=== PATIENT | female | born 1985 | race Caucasian/White ===

== ENCOUNTER 2019-07-30 08:11 | Outpatient (CLI) | payer OTHER ==
--- NOTE | 2019-07-30 13:30 | Ultrasound Report ---
Reason: POSITIVE TEST Procedure Date: 07/30/2019 Accession Number: [id number] / [id number] Procedure: US - OB First Trimester CPT Code: Final Report FULL RESULT: EXAM: FIRST TRIMESTER OBSTETRIC ULTRASOUND (Less than 11 weeks) EXAM DATE: 07/30/2019 08:21 AM. CLINICAL HISTORY: Positive test. LMP: 05/22/2019. COMPARISONS: None. TECHNIQUE: Transabdominal ultrasound examination with static image documentation. CLINICAL DATES: EGA 9 weeks 6 days with CECILIA 02/26/2020 based on LMP. ASSESSMENT: Gestational Sac: Single intrauterine. Mean gestational sac diameter: 43.1 mm = 9 weeks 6 days. Embryo: CRL (crown-rump length) 36.5 mm = 10 weeks 4 days. Cardiac activity: 163 beats per minute. Yolk sac: 4.2 mm. Amniotic fluid: Not accurately assessed at this gestational age. Early placenta: Posterior. Other: No perigestational fluid collection demonstrated. MATERNAL STRUCTURES: Uterus: Anteverted. Unremarkable. Cervix: Closed. Right Ovary/Adnexa: The ovary measures 2.7 x 2.1 x 1.6 cm, volume 4.7 cc. Unremarkable. Left Ovary/Adnexa: The ovary measures 5.2 x 4.4 x 2.9 cm, volume 35 cc. 3.8 x 3.6 x 2 x 7 cm cyst is noted. Free Fluid: None. Other: None. IMPRESSION: 1. Single viable intrauterine at EGA 10 weeks 4 days with CECILIA 02/21/2020 based on crown-rump length, which is concordant with clinical dates. 2. Assigned dating is CECILIA 9 weeks 6 days based on LMP. ALEXANDER
== END 2019-07-30 08:12 | disposition home or self-care (01) ==
LOC: DI 08:11
PROVIDERS: ATTEND Nurse Practitioner Obstetrics & Gynecology
DX: Z32.01 Encounter for pregnancy test, result positive (principal)
CPT/HCPCS: 76801

== ENCOUNTER 2019-07-31 08:00 | Outpatient (CLI) | payer OTHER ==
[2019-07-31 08:55] LABS: MUDS CUTOFF CONCENTRATIONS CUTOFF CONC BELOW:
[2019-07-31 09:42] LABS: AMPHETAMINE SCREEN,URINE NEGATIVE (NEGATIVE); BENZODIAZEPINES SCREEN, URINE NEGATIVE (NEGATIVE); COCAINE SCREEN URINE NEGATIVE (NEGATIVE); METHADONE SCREEN, URINE NEGATIVE (NEGATIVE); METHAMPHETAMINES SCREEN, URINE NEGATIVE (NEGATIVE); OPIATE SCREEN, URINE NEGATIVE (NEGATIVE); OXYCODONE SCREEN, URINE NEGATIVE (NEGATIVE); PROPOXYPHENE SCREEN, URINE NEGATIVE (NEGATIVE); TRICYCLIC ANTIDEPRESSANT,URINE NEGATIVE (NEGATIVE)
== END 2019-07-31 23:59 | disposition home or self-care (01) ==
LOC: LAB.R 08:00
PROVIDERS: ATTEND Nurse Practitioner Obstetrics & Gynecology
DX: Z36.89 Encounter for other specified antenatal screening (principal)
CPT/HCPCS: 80306

== ENCOUNTER 2019-08-06 11:11 | Outpatient (CLI) | payer OTHER | END 2019-08-06 11:12 | disposition home or self-care (01) | LOC: LAB 11:11 | PROVIDERS: ATTEND Nurse Practitioner Obstetrics & Gynecology | DX: Z36.89 Encounter for other specified antenatal screening (principal) | CPT/HCPCS: 81599 ==

== ENCOUNTER 2019-09-10 13:38 | Outpatient (CLI) | payer BC ==
[2019-09-10 14:07] LABS: BASOPHILS % (AUTO) 0.3 %; EOSINOPHILS # (AUTO) 0.1 10^3/uL (0.0-0.7); EOSINOPHILS % (AUTO) 0.7 %; HGB - HEMOGLOBIN 12.1 g/dL (12.0-16.0); LYMPHOCYTES # (AUTO) 1.9 10^3/uL (1.5-3.5); LYMPHOCYTES % (AUTO) 16.4 %; MEAN CORPUSCULAR HEMOGLOBIN 30.6 pg (27.0-31.0); MEAN CORPUSCULAR HGB CONC 34.5 g/dL (32.0-36.0); MEAN CORPUSCULAR VOLUME 88.6 fL (81.0-99.0); MEAN PLATELET VOLUME 9.4 fL (7.9-10.8); MONOCYTES # (AUTO) 0.6 10^3/uL (0.0-1.0); MONOCYTES % (AUTO) 5.4 %; NEUTROPHILS # (AUTO) 8.8 10^3/uL (1.5-6.6); NEUTROPHILS % (AUTO) 76.6 %; PLT - PLATELET COUNT 297 10^3/uL (130-450); RED BLOOD COUNT 3.96 10^6/uL (4.20-5.40); RED CELL DISTRIBUTION WIDTH 12.5 % (12.0-15.0); WHITE BLOOD COUNT 11.5 x10^3/uL (4.8-10.8)
[2019-09-11 12:08] LABS: HEPATITIS B SURFACE ANTIGEN NON-REACTIVE (NON-REACTIVE)
[2019-09-11 14:35] LABS: HIV AG/AB 4TH GEN NON-REACTIVE (NON-REACTIVE)
[2019-09-11 15:13] LABS: HEPATITIS C ANTIBODY NON-REACTIVE (NON-REACTIVE)
== END 2019-09-10 13:39 | disposition home or self-care (01) ==
LOC: LAB 13:38
PROVIDERS: ATTEND Nurse Practitioner Obstetrics & Gynecology
DX: Z36.89 Encounter for other specified antenatal screening (principal)
CPT/HCPCS: 36415; 81511; 81599; 85025; 86592; 86762; 86803; 86850; 86900; 86901; 87340; 87389

== ENCOUNTER 2019-10-08 16:19 | Outpatient (CLI) | payer BC ==
--- NOTE | 2019-10-09 08:45 | Ultrasound Report ---
Reason: SUPERV OF , SCREENING Procedure Date: 10/08/2019 Accession Number: [id number] / [id number] Procedure: US - OB Detailed Eval CPT Code: Final Report FULL RESULT: EXAM: COMPLETE OBSTETRICAL ULTRASOUND EXAM DATE: 10/08/2019 04:35 PM. CLINICAL HISTORY: anatomic survey. COMPARISON: OB FIRST TRIMESTER 07/30/2019 8:21 AM. TECHNIQUE: Real-time sonographic evaluation of the fetus performed by the shirt presser. Multiple jewelry sales representative static images were saved for review. DATING: Established EGA 19 weeks 6 days with CECILIA 02/26/2020 based on working due date/LMP. EGA 19 weeks 2 days with CECILIA 03/01/2020 based on the current ultrasound. GENERAL EVALUATION Rosario . Cardiac activity: 147 bpm. movement: Visualized. Presentation: Variable Placenta: Posterior position. No evidence for previa. Umbilical cord: 3 vessel cord. Central placental cord origin. Amniotic fluid: Subjectively normal. MVP 4.6 cm. BIOMETRY Bi-Parietal Diameter (BPD): 4.2 cm, 18 weeks 4 days Head Circumference (HC): 16.7 cm, 19 weeks 3 days Abdominal Circumference (AC): 14.2 cm, 19 weeks 4 days Femur Length (FL): 3.4 cm, 20 weeks 5 days Estimated Weight: 325 g, 53rd percentile for 19 weeks 6 days. ANATOMY The profile view/nasal bone, nuchal fold, open hands in real-time, four-chamber cardiac view and right ventricular outflow tract, right lower extremity and right leg/foot relationship as well as the left leg/foot relationship not adequately visualized. The intracranial structures,spine, left ventricular outflow tract, stomach, abdominal wall and cord insertion, diaphragm, kidneys, bladder, and remaining upper extremities were visualized and demonstrate no abnormality. MATERNAL STRUCTURES Uterus: Unremarkable. Cervix: Long and closed. Transabdominal length 4.5 cm. Right ovary/adnexa: Unremarkable. Left ovary/adnexa: A 1.3 cm cyst is noted. Free fluid: None. IMPRESSION: 1. Rosario live intrauterine with gestational age 19 weeks 6 days based on working due date. 2. Estimated weight is within expected limits for assigned dating. 3. Incomplete anatomy survey. No anatomic abnormalities are detected at this time. RADIA
== END 2019-10-08 16:20 | disposition home or self-care (01) ==
LOC: DI 16:19
PROVIDERS: ATTEND Nurse Practitioner Obstetrics & Gynecology
DX: Z34.90 Encounter for supervision of normal pregnancy, unspecified, unspecified trimester (principal); Z36.89 Encounter for other specified antenatal screening
CPT/HCPCS: 76811

== ENCOUNTER 2019-10-22 08:59 | Outpatient (CLI) | payer BC ==
--- NOTE | 2019-10-22 15:34 | Ultrasound Report ---
Reason: SUPERVISION OF , COMPLETION OF FAS Procedure Date: 10/22/2019 Accession Number: [id number] / [id number] Procedure: US - OB F/U or Repeat CPT Code: Final Report FULL RESULT: EXAM: FOLLOW-UP OBSTETRICAL ULTRASOUND. EXAM DATE: 10/22/2019 10:08 AM. CLINICAL HISTORY: Supervision of , completion of FAS. COMPARISON: OB DETAILED EVAL 10/08/2019 4:35 PM. TECHNIQUE: Real-time sonographic evaluation of the fetus performed by the hand packer/packager. Multiple provider service representative static images were saved for review. DATING: Established EGA 21 weeks 6 days with CECILIA 02/26/2020 based on working due date. GENERAL EVALUATION Rosario . Cardiac activity: 140 bpm. movement: Visualized. Presentation: Breech. Placenta: Posterior position. Amniotic fluid: Normal. DEACON 10.4 cm. MVP 3.0 cm. ANATOMY Profile/nasal bone view, open hands, 4-chamber heart, right ventricular outflow tract and right lower extremity including right leg foot relationship as well as the left lower extremity leg foot relationship all well visualized and within normal limits. IMPRESSION: 1. Rosario live intrauterine with gestational age 21 weeks 6 days based on working due date. 2. Completion of the anatomy survey. No anatomic abnormality is identified. RADIA
== END 2019-10-22 09:00 | disposition home or self-care (01) ==
LOC: DI 08:59
PROVIDERS: ATTEND Nurse Practitioner Obstetrics & Gynecology
DX: Z34.92 Encounter for supervision of normal pregnancy, unspecified, second trimester (principal); Z36.89 Encounter for other specified antenatal screening
CPT/HCPCS: 76816

== ENCOUNTER 2019-11-26 12:04 | Outpatient (CLI) | payer BC ==
[2019-11-26 16:36] LABS: HGB - HEMOGLOBIN 11.6 g/dL (12.0-16.0); MEAN CORPUSCULAR HEMOGLOBIN 29.6 pg (27.0-31.0); MEAN CORPUSCULAR HGB CONC 32.1 g/dL (32.0-36.0); MEAN CORPUSCULAR VOLUME 92.1 fL (81.0-99.0); MEAN PLATELET VOLUME 9.9 fL (7.9-10.8); RED BLOOD COUNT 3.92 10^6/uL (4.20-5.40); RED CELL DISTRIBUTION WIDTH 12.8 % (12.0-15.0); WHITE BLOOD COUNT 11.9 x10^3/uL (4.8-10.8)
== END 2019-11-26 23:59 | disposition home or self-care (01) ==
LOC: LAB.WCP 12:04
PROVIDERS: ATTEND Obstetrics & Gynecology
DX: Z34.90 Encounter for supervision of normal pregnancy, unspecified, unspecified trimester (principal)
CPT/HCPCS: 36415; 82950; 85027; 86850

== ENCOUNTER 2020-01-23 08:56 | Outpatient (CLI) | payer BC ==
--- NOTE | 2020-01-23 14:19 | Ultrasound Report ---
Reason: PREGNENCY SIZE LESS THEN DATES Procedure Date: 01/23/2020 Accession Number: [id number] / [id number] Procedure: US - OB F/U or Repeat CPT Code: Final Report FULL RESULT: PROCEDURE: OB F/U or Repeat INDICATIONS: PREGNENCY SIZE LESS THEN DATES OUTSIDE/PRIOR DATING DATA: Last menstrual period (LMP): 05/22/2019. LMP-based estimated date of delivery (CECILIA): 02/26/2020. First dating scan (date and location): 07/30/2019. Estimated date of delivery (CECILIA) from first dating scan: 02/26/2020. TECHNIQUE: Real-time scanning was performed of the fetus, with image documentation and biometric measurements. Endovaginal scanning: Not needed for this study. COMPARISON: 07/30/2019, 10/08/2019, 10/22/2019 obstetrical ultrasound studies. FINDINGS: General: A single living intrauterine gestation is present. Presentation: Vertex Placenta: Placental position is fundal, without previa. Amniotic fluid index: 12.7 cm, 37th percentile for gestational age. heart rate: 147 beats per minute. Maternal cervical canal: 3.1 cm long; normal length is 2.5 cm or more. biometrics: Biparietal diameter: 8.3 cm, 33 weeks 2 days Head circumference: 30.2 cm, 33 weeks 3 days Abdominal circumference: 28.5 cm, 32 weeks 4 days Femur length: 6.4 cm, 33 weeks 1 day Estimated gestational age from initial scan: 35 weeks 1 day. Composite gestational age from present scan: 29 weeks 5 days Estimated weight and percentile: 2073 g, the lower 5th percentile for current gestational age. Measurement variability in biometric dating: +/- 10 days from 12-20 weeks gestation, +/- 2 weeks from 20-30 weeks gestation, +/- 3 weeks at 30 weeks gestation or more. Other: Not applicable. IMPRESSION: The growth parameters have reached the threshold of asymmetric growth retardation with the current abdominal circumference lagging behind the other 3 growth parameters of BPD, head circumference, and femur length. This results in a reduction of estimated weight to the lower 5th percentile. Repeat OB ultrasound in 1-2 weeks likely is warranted. Reviewed by: Stone Escalona MD on 01/23/2020 2:17 PM PDT Approved by: Stone Escalona MD on 01/23/2020 2:17 PM PDT Station ID: [id number]
== END 2020-01-23 08:57 | disposition home or self-care (01) ==
LOC: DI 08:56
PROVIDERS: ATTEND Advanced Practice Midwife
DX: O36.5930 Maternal care for other known or suspected poor fetal growth, third trimester, not applicable or unspecified (principal)
CPT/HCPCS: 76816

== ENCOUNTER 2020-01-28 12:11 | Outpatient (CLI) | payer BC ==
[2020-01-28 12:33] VITALS: BP 113/66
--- NOTE | 2020-01-28 14:38 | Ultrasound Report ---
Reason: IUGR at 35.6 weeks gestation Procedure Date: 01/28/2020 Accession Number: [id number] / [id number] Procedure: US - OB Biophysical Profile CPT Code: Final Report FULL RESULT: PROCEDURE: OB Biophysical Profile INDICATIONS: IUGR at 35.6 weeks gestation OUTSIDE/PRIOR DATING DATA: Last menstrual period (LMP): 05/22/2019. LMP-based estimated date of delivery (CECILIA): 02/26/2020. First dating scan (date and location): 07/30/2019. Estimated date of delivery (CECILIA) from first dating scan: 02/26/2020. TECHNIQUE: Real-time scanning was performed of the fetus, with image documentation and biometric measurements. Biophysical profile was also obtained. Endovaginal scanning: Not performed COMPARISON: 01/23/2020. FINDINGS: General: A single living intrauterine gestation is present. Presentation: Vertex, spine maternal left Placenta: Placental position is fundal, without previa. Amniotic fluid index: 10.0 cm within normal limits heart rate: 136 beats per minute. Biophysical profile: Tone: 2 points. Movement: 2 points. Respiration: 2 points. Largest pocket of fluid: 2 points. (4.5 cm) Umbilical artery Doppler: 2.55, within normal limits IMPRESSION: Single living intrauterine fetus in vertex presentation Normal biophysical profile and cord Doppler examination Normal DEACON Reviewed by: Jasiel Cruz MD on 01/28/2020 2:36 PM PDT Approved by: Jasiel Cruz MD on 01/28/2020 2:36 PM PDT Station ID: [id number]
--- NOTE | 2020-01-28 16:18 | PROCEDURE REPORT ---
- HPI Diagnosis/Indication for NST: Intrauterine growth restriction Current EDU 02/26/20 Gestation 35 Weeks and 6 Days 1 Para 0 Vital Signs Temperature 37.2 C 01/28/20 12:29 Heart Rate 74 01/28/20 12:29 Respiratory Rate 16 01/28/20 12:29 Blood Pressure 113/66 01/28/20 12:29 O2 Saturation 100 01/28/20 12:29 Temperature 37.2 C 01/28/20 12:29 Heart Rate 74 01/28/20 12:29 Respiratory Rate 16 01/28/20 12:29 Blood Pressure 113/66 01/28/20 12:29 O2 Saturation 100 01/28/20 12:29 - NST Procedure NST Procedure Start Date 01/28/20 Start Time 12:25 Stop Time 13:01 Vibroacoustic Stimulation Used No Patient States Movement Yes - Results and Plan Findings/Impression: 34yo at 35.6wks gestation by 9.6wk US, presents today for NST and BPP with cord dopplers for IUGR NST performed 01/28/2020 NST read 01/28/2020 NST Interpretation: Reassuring Baseline 120s. moderate variability, accels, no decels. Cat I Impression: NST reassuring BPP 8/8 Cord Dopplers (S/D ration 2.55) WNL Final Diagnosis: Reassuring findings today Continue with twice weekly NST with BPP and cord dopplers
== END 2020-01-28 14:00 | disposition home or self-care (01) ==
LOC: WFO 12:11 → FBP 12:12 → WFO 14:00
PROVIDERS: ATTEND Advanced Practice Midwife
DX: O36.5930 Maternal care for other known or suspected poor fetal growth, third trimester, not applicable or unspecified (principal); Z3A.35 35 weeks gestation of pregnancy; Z36.85 Encounter for antenatal screening for Streptococcus B
CPT/HCPCS: 59025; 76819

== ENCOUNTER 2020-02-02 07:00 | Outpatient (CLI) | payer BC ==
[2020-02-02 19:03] LABS: TRICHOMONAS VAGINALIS DNA NEGATIVE (NEGATIVE)
--- NOTE | 2020-02-03 19:55 | PROCEDURE REPORT ---
- HPI Diagnosis/Indication for NST: Intrauterine growth restriction NST perform date 02/02/2020 NST read date 02/03/2020 34yo at 36.5wks gestation by 9.6wk US, presents today for NST and BPP with cord dopplers for IUGR NST Interpretation: Reassuring Baseline 140s. moderate variability, accels, no recurrent decels (question of early vs late decel with one spontaneous uterine contraction) . Cat I Impression: NST reassuring BPP 8/8 Cord Dopplers (S/D ratio) WNL Final Diagnosis: Reassuring findings today Continue with twice weekly NST with BPP and cord dopplers - NST Procedure NST Procedure Start Time 09:22 Stop Time 10:22
== END 2020-02-02 23:59 | disposition home or self-care (01) ==
LOC: LAB.R 07:00
PROVIDERS: ATTEND Advanced Practice Midwife
DX: Z34.90 Encounter for supervision of normal pregnancy, unspecified, unspecified trimester (principal); Z36.85 Encounter for antenatal screening for Streptococcus B
CPT/HCPCS: 87491; 87591; 87661; 87797

== ENCOUNTER 2020-02-02 09:23 | Outpatient (CLI) | payer BC ==
[2020-02-02 09:37] VITALS: BP 119/64
--- NOTE | 2020-02-02 10:23 | PROCEDURE REPORT ---
- HPI Diagnosis/Indication for NST: Other (IUGR) Current EDU 02/26/20 Gestation 36 Weeks and 4 Days 1 Para 0 Vital Signs Temperature 99.0 F 02/02/20 09:27 Heart Rate 80 02/02/20 09:27 Respiratory Rate 16 02/02/20 09:27 Blood Pressure 119/64 02/02/20 09:27 O2 Saturation 100 02/02/20 09:27 Temperature 99.0 F 02/02/20 09:27 Heart Rate 80 02/02/20 09:27 Respiratory Rate 16 02/02/20 09:27 Blood Pressure 119/64 02/02/20 09:27 O2 Saturation 100 02/02/20 09:27 - NST Procedure NST Procedure Start Date 02/02/20 Start Time 09:22 Stop Time 13:01 Vibroacoustic Stimulation Used No Patient States Movement Yes - Results and Plan Findings/Impression: 34yo G1 at 36w4d here for scheduled NST, and cord dopplers. NST reactive.
--- NOTE | 2020-02-02 12:17 | Ultrasound Report ---
PROCEDURE: OB F/U or Repeat INDICATIONS: growth restriction, baby at the 4%, CECILIA 02/25 OUTSIDE/PRIOR DATING DATA: Last menstrual period (LMP): 05/22/2019. LMP-based estimated date of delivery (CECILIA): 02/26/2020. First dating scan (date and location): 07/30/2019. Estimated date of delivery (CECILIA) from first dating scan: 02/26/2020. TECHNIQUE: Real-time scanning was performed of the fetus, with image documentation and biometric measurements. COMPARISON: OB ultrasound 01/28/2020 FINDINGS: General: A single living intrauterine gestation is present. Presentation: Cephalic Placenta: Placental position is posterior, without previa. Amniotic fluid index: 8.7 cm, 9th percentile for gestational age. Largest pocket 3.1 cm heart rate: 146 beats per minute. Maternal cervical canal: 4.4 cm long; normal length is 2.5 cm or more. biometrics: Biparietal diameter: 8.5 cm 34 weeks 0 days Head circumference: 30.7 cm 34 weeks 1 day Abdominal circumference: 3.0 cm 33 weeks 6 days Femur length: 6.9 cm 35 weeks 2 days Estimated gestational age from initial scan: 36 weeks 4 days Composite gestational age from present scan: 34 weeks 2 days Estimated weight and percentile: 2399 g, 75th percentile Measurement variability in biometric dating: +/- 10 days from 12-20 weeks gestation, +/- 2 weeks from 20-30 weeks gestation, +/- 3 weeks at 30 weeks gestation or more. Other: BPP: Tone: 2 Movement: 2 Respiration: 2 Largest pocket: 2 Umbilical artery systolic to diastolic ratio: 2.8. This is compared to 2.6 on 01/28/2020 and 3.4 on 01/23/2020. IMPRESSION: 1. Single live intrauterine with ultrasound gestational age today of 34 weeks 2 days compar ed to 36 weeks 4 days from initial ultrasound. 2. Estimated weight is at the 7.5th percentile, compared to lower 5th percentile on 01/23/2020. P revious exams demonstrate concern for intrauterine growth restriction. Current exam gestational age i s almost 2 weeks behind gestational age from initial ultrasound. Although, in the third trimester +/- 3 weeks is within normal limits, the low weight percentile is concerning for true intrauterine growth restriction. 3. Umbilical artery systolic to diastolic ratio measures 2.8. This is compared to 2.6 on 01/28/2020 an d 3.4 on 01/23/2020. Reviewed by: Chantal Jeffers MD on 02/02/2020 12:16 PM PDT Approved by: Chantal Jeffers MD on 02/02/2020 12:16 PM PDT Station ID: [id number]
--- NOTE | 2020-02-02 12:26 | Ultrasound Report ---
PROCEDURE: OB Biophysical Profile INDICATIONS: growth restriction, at the 4th %, CECILIA OUTSIDE/PRIOR DATING DATA: Last menstrual period (LMP): 05/22/2019. LMP-based estimated date of delivery (CECILIA): 02/26/2020. First dating scan (date and location): 07/30/2019. Estimated date of delivery (CECILIA) from first dating scan: 02/26/2020. TECHNIQUE: Real-time scanning was performed of the fetus, with image documentation and biometric joce surements. Biophysical profile was also obtained. Endovaginal scanning: Not needed for this study. COMPARISON: Earlier OB ultrasound studies for this to include 01/28/2020, 01/23/2020, 0, 10/08/2019. FINDINGS: General: A single living intrauterine gestation is present. Presentation: Vertex Placenta: Placental position is posterior, without previa. Amniotic fluid index: 8.7 cm, lower 9th percentile for gestational age. heart rate: 149 beats per minute. Maternal cervical canal: 4.4 cm long; normal length is 2.5 cm or more. biometrics: Biparietal diameter: 8.5 cm, 34 weeks 0 days Head circumference: 30.7 cm, 34 weeks 1 day Abdominal circumference: 30.0 cm, 33 weeks 6 days Femur length: 6.9 cm, 35 weeks 2 days Estimated gestational age from initial scan: 36 weeks 4 days. Composite gestational age from present scan: 34 weeks 2 days Estimated weight and percentile: 2399 g, lower 7.5 percentile Measurement variability in biometric dating: +/- 10 days from 12-20 weeks gestation, +/- 2 weeks from 20-30 weeks gestation, +/- 3 weeks at 30 weeks gestation or later. Biophysical profile: Tone: 2 points. Movement: 2 points. Respiration: 2 points. Largest pocket of fluid: 2 points. Umbilical artery Doppler: 2.8, 2.0, 2.6 systolic/diastolic ratios Note: chest, abdomen, kidney region, placental cord insertion and urinary bladder were visualiz ed and normal. The later gestational age of the gestation does reduce quality of visualization of fet al anatomy. IMPRESSION: 1. Biophysical profile normal, with 8 of 8 possible points. Umbilical artery systolic/diastolic ratio is also normal. 2. Amniotic fluid index is in the normal range, lower 9th percentile for current gestational age. Nex t 3. Estimated weight is above the lower limits of normal at 7.5% for current gestational age. Th e lower limit of normal is 5%. Additional close monitoring for further reduction of growth like ly is warranted in this circumstance. Reviewed by: Stone Escalona MD on 02/02/2020 11:25 AM ANDRESSA Approved by: Stone Escalona MD on 02/02/2020 11:25 AM ANDRESSA Station ID: [id number]
== END 2020-02-02 11:31 | disposition home or self-care (01) ==
LOC: WFO 09:23 → FBP 09:30 → WFO 11:31
PROVIDERS: ATTEND Obstetrics & Gynecology
DX: O36.5930 Maternal care for other known or suspected poor fetal growth, third trimester, not applicable or unspecified (principal); Z3A.36 36 weeks gestation of pregnancy; Z36.85 Encounter for antenatal screening for Streptococcus B
CPT/HCPCS: 59025; 76816; 76819; 87491; 87591; 87661; 87797

== ENCOUNTER 2020-02-09 08:56 | Outpatient (CLI) | payer BC ==
[2020-02-09 09:12] VITALS: BP 113/69
--- NOTE | 2020-02-09 11:56 | Ultrasound Report ---
PROCEDURE: OB Biophysical Profile INDICATIONS: IUGR OUTSIDE/PRIOR DATING DATA: Last menstrual period (LMP): 05/22/2019. LMP-based estimated date of delivery (CECILIA): 02/26/2020. First dating scan (date and location): 07/30/2019. Estimated date of delivery (CECILIA) from first dating scan: 02/26/2020. TECHNIQUE: Real-time scanning was performed of the fetus, with image documentation. Biophysical pro file was also obtained. Endovaginal scanning: Not performed COMPARISON: 02/02/2020, 01/28/2020 FINDINGS: General: A single living intrauterine gestation is present. Presentation: Cephalic Placenta: Placental position is posterior, without previa. Amniotic fluid index: 9.8 cm, 16th percentile for gestational age. Largest pocket is 3.4 cm. heart rate: 141 beats per minute. Maternal cervical canal: Not well seen. biometrics: Not performed on the current exam. Biophysical profile: Tone: 2 points. Movement: 2 points. Respiration: 0 points. Largest pocket of fluid: 2 points. Umbilical artery Doppler: 2.53, 2.25, 2.60, normal IMPRESSION: 1. Single living intrauterine in cephalic presentation. 2. Biophysical profile score of 6 out of 8 secondary to respiratory motion is not seen. 3. Normal umbilical artery Doppler ratios. Reviewed by: Allegra Wiseman MD on 02/09/2020 11:54 AM PDT Approved by: Allegra Wiseman MD on 02/09/2020 11:54 AM PDT Station ID: [id number]
--- NOTE | 2020-02-09 14:27 | PROCEDURE REPORT ---
- HPI Diagnosis/Indication for NST: Intrauterine growth restriction Current EDU 02/26/20 Gestation 37 Weeks and 4 Days 1 Para 0 Vital Signs Temperature 37.1 C 02/09/20 09:10 Heart Rate 71 02/09/20 09:10 Respiratory Rate 18 02/09/20 09:10 Blood Pressure 113/69 02/09/20 09:10 O2 Saturation 100 02/09/20 09:10 Temperature 37.1 C 02/09/20 09:10 Heart Rate 71 02/09/20 09:10 Respiratory Rate 18 02/09/20 09:10 Blood Pressure 113/69 02/09/20 09:10 O2 Saturation 100 02/09/20 09:10 - NST Procedure NST Procedure Start Date 02/09/20 Start Time 08:59 Stop Time 09:19 Vibroacoustic Stimulation Used No Patient States Movement Yes - Results and Plan Findings/Impression: 34yo at 37.4wks gestation by 9.6wk US, presents today for NST and BPP with cord dopplers for IUGR NST performed 02/09/2020 NST read 02/09/2020 NST Interpretation: Reassuring Baseline 140s. moderate variability, accels, no decels. Cat I Impression: NST reassuring BPP 6/8 ( 2 off for no respiratory movements) Cord Dopplers- WNL (2.53/2.25/2.60) Final Diagnosis: Due to BPP of 6/8, follow up within 24 hours is indicated. Continue with twice weekly NST with BPP and cord dopplers MFM consulted- deliver by 39.0wk. Follow up with MFM 02/11.
== END 2020-02-09 11:10 | disposition home or self-care (01) ==
LOC: WFO 08:56 → FBP 08:58 → WFO 11:10
PROVIDERS: ATTEND Advanced Practice Midwife
DX: O36.5930 Maternal care for other known or suspected poor fetal growth, third trimester, not applicable or unspecified (principal); Z3A.37 37 weeks gestation of pregnancy
CPT/HCPCS: 59025; 76819

== ENCOUNTER 2020-02-10 10:56 | Outpatient (CLI) | payer BC ==
[2020-02-10 11:20] VITALS: BP 113/64
--- NOTE | 2020-02-10 17:05 | Ultrasound Report ---
PROCEDURE: OB Biophysical Profile INDICATIONS: small for gestational age, IUGR OUTSIDE/PRIOR DATING DATA: Last menstrual period (LMP): 05/22/2019. LMP-based estimated date of delivery (CECILIA): 02/26/2020. First dating scan (date and location): 07/30/2019. Estimated date of delivery (CECILIA) from first dating scan: 02/26/2020. TECHNIQUE: Real-time scanning was performed of the fetus, with image documentation and biometric joce surements. Biophysical profile was also obtained. Endovaginal scanning: Not performed COMPARISON: 02/02/2028, 02/09/2020. FINDINGS: General: A single living intrauterine gestation is present. Presentation: Cephalic with the spine towards maternal right side. Placenta: Placental position is posterior, without previa. Amniotic fluid index: 9.6 cm, 15.3% and is normal for gestational age. Largest pocket measures 3.5 cm. heart rate: 137 beats per minute. Maternal cervical canal: 3.9 cm long; normal length is 2.5 cm or more. biometrics: Estimated gestational age from initial scan: 37 weeks, 5 days Biophysical profile: Tone: 2 points. Movement: 2 points. Respiration: 2 points. Largest pocket of fluid: 2 points. Umbilical artery Doppler: 2.6 and 2.8 IMPRESSION: 1. Single live intrauterine with fetus in vertex presentation. heart rate is 137 bpm. Normal amount of amniotic fluid. 2. biophysical profile score is 8 out of 8. 3. Normal umbilical artery S/D ratio. Reviewed by: Jaylon Sultana MD on 02/10/2020 5:04 PM PDT Approved by: Jaylon Sultana MD on 02/10/2020 5:04 PM PDT Station ID: [id number]
--- NOTE | 2020-02-11 15:59 | PROCEDURE REPORT ---
- HPI Diagnosis/Indication for NST: Intrauterine growth restriction Current EDU 02/26/20 Gestation 37 Weeks and 5 Days 1 Para 0 Vital Signs Temperature 37.0 C 02/10/20 11:17 Heart Rate 89 02/10/20 11:17 Respiratory Rate 16 02/10/20 11:17 Blood Pressure 113/64 02/10/20 11:17 O2 Saturation 98 02/10/20 11:17 Temperature 37.0 C 02/10/20 11:17 Heart Rate 89 02/10/20 11:17 Respiratory Rate 16 02/10/20 11:17 Blood Pressure 113/64 02/10/20 11:17 O2 Saturation 98 02/10/20 11:17 - NST Procedure NST Procedure Start Date 02/10/20 Start Time 11:15 Stop Time 11:45 Patient States Movement Yes - Results and Plan Findings/Impression: reactive NST Plan: continue antinatal testing
== END 2020-02-10 14:45 | disposition home or self-care (01) ==
LOC: WFO 10:56 → FBP 11:02 → WFO 14:45
PROVIDERS: ATTEND Obstetrics & Gynecology
DX: O36.5930 Maternal care for other known or suspected poor fetal growth, third trimester, not applicable or unspecified (principal); Z3A.37 37 weeks gestation of pregnancy
CPT/HCPCS: 59025; 76819

== ENCOUNTER 2020-02-13 17:53 | Inpatient (IN) | payer BC ==
[2020-02-13] MEDS ORDERED: OXYTOCIN/SODIUM CHLORIDE 500 ML IV PRN ×2 (20:51)
[2020-02-13] MEDS ORDERED: TRANEXAMIC ACID 1,000 MG in SODIUM CHLORIDE 0.9% 100ML 100 ML IV PRN (20:51)
[2020-02-13] MEDS ORDERED: miSOPROStoL 200 MCG TABLET BC PRN (20:51)
[2020-02-13] MEDS ORDERED: TERBUTALINE 1 MG/ML VIAL SUBQ PRN (20:51)
[2020-02-13] MEDS ORDERED: miSOPROStoL 200 MCG TABLET PR ONE (20:51)
[2020-02-13] MEDS ORDERED: CARBOPROST TROMETHAMINE 250 MCG/ML AMP IM PRN ×2 (20:51)
[2020-02-13] MEDS ORDERED: SODIUM CHLORIDE FLUSH 0.9% 10 ML SYRINGE IVP PRN (20:51)
[2020-02-13] MEDS ORDERED: fentaNYL 100 MCG/2 ML VIAL IVP PRN (20:51)
[2020-02-13] MEDS ORDERED: OXYTOCIN 10 UNIT/ML VIAL IM PRN (20:51)
[2020-02-13] MEDS ORDERED: miSOPROStoL 200 MCG TABLET PR PRN (20:51)
[2020-02-13] MEDS ORDERED: ONDANSETRON 4 MG/2 ML VIAL IVP PRN (20:51)
[2020-02-13] MEDS ORDERED: METHYLERGONOVINE 0.2 MG/ML VIAL IM PRN ×2 (20:51)
[2020-02-13] MEDS ORDERED: ONDANSETRON ODT 4 MG TABLET TL PRN (20:51)
[2020-02-13 21:21] LABS: BASOPHILS % (AUTO) 0.3 %; EOSINOPHILS # (AUTO) 0.1 10^3/uL (0.0-0.7); HGB - HEMOGLOBIN 12.2 g/dL (12.0-16.0); LYMPHOCYTES # (AUTO) 2.7 10^3/uL (1.5-3.5); LYMPHOCYTES % (AUTO) 18.7 %; MEAN CORPUSCULAR HGB CONC 34.3 g/dL (32.0-36.0); MEAN CORPUSCULAR VOLUME 87.5 fL (81.0-99.0); MEAN PLATELET VOLUME 9.5 fL (7.9-10.8); MONOCYTES # (AUTO) 0.8 10^3/uL (0.0-1.0); MONOCYTES % (AUTO) 5.2 %; NEUTROPHILS # (AUTO) 10.8 10^3/uL (1.5-6.6); NEUTROPHILS % (AUTO) 73.8 %; PLT - PLATELET COUNT 306 10^3/uL (130-450); RED BLOOD COUNT 4.07 10^6/uL (4.20-5.40); RED CELL DISTRIBUTION WIDTH 12.6 % (12.0-15.0); WHITE BLOOD COUNT 14.6 x10^3/uL (4.8-10.8)
[2020-02-13] MEDS: miSOPROStoL 100 MCG TABLET BC SCH (21:35)
--- NOTE | 2020-02-13 22:05 | HISTORY & PHYSICAL EXAMINATION ---
Admit History - Visit Reason Visit Reason: Other (IOL) - : 1 Parity: 0 Care: positive: [facility] Complications This : positive: Other (growth restriction now with oligo) Smoking Status: Never smoker - Mother's Labs Mother's Blood Type: positive: B Mother's RH: positive: Positive - Other Maternal History Other Maternal History: Patient is a 34 yo at 38+1 wga with a complicated by growth restriction now with oligohydramnios Patient has been followed for growth restriction. She was seen by MFM in consultation on 02/12/20 at which time she was found to have low amntioic fluid levels. The recommendation was to proceed with induction of labor. She endorses FM. Denies LOF/VB/CTX. OB HX as below: Initial U/S: @ 9.6wks c/w LMP dating. B pos/Rubella -immune Gentic testing: [place] screen neg, sex female; [place] screen neg FAS: 10/08/2019 WNL however incomplete. Posterior placenta, no previa. 3VC. Size c/w dating. DEACON WNL. 10/22/2019 f/u FAS WNL. 01/23/2020 growth US shows IUGR 5th percentile MFM- Growth US 7%. Deliver between 38.0-39.0wks. Glucola: 88 TDAP: given GBS & GC/CT at 36 weeks HSV: denies Breast pump Rx: Obtained MOD: Anticipate ; expecting female. Spouse: Parrish. Desires Placenta encapsulation- will need tissue release form, aware to bring own cooler. pp contraception: Mirena Meds/Allgy - Allergies Allergies/Adverse Reactions: Allergies Allergy/AdvReac Type Severity Reaction Status Date / Time No Known Drug Allergies Allergy Verified 02/10/20 11:11 Review of Systems - Other Findings Other Findings: As per HPI, otherwise remaining systems are negative. Physical - Abdominal Exam Vital Signs: Temp Pulse Resp BP Pulse Ox 98.1 F 77 18 110/67 02/13/20 19:50 02/13/20 18:09 02/13/20 18:09 02/13/20 18:09 Contraction Frequency (min/apart): irritable - Monitoring Heart Rate Baseline: 135 mod bruno + accels, no decels Strip Review: positive: Category I - Presentation Presentation: positive: Vertex - Vaginal Exam Membranes: positive: Membranes intact Dilation (in cm): FT Effacement (%): long Station: positive: -3 Cervical Position: positive: Posterior - Speculum Exam Speculum Exam Performed: positive: No - Other Notes Labor Progress Note/Additional Text: Vertex confirmed by bedside us Plan for Labor - Plan For Labor Plan for Labor: 34 yo at 38+1 wga here for IOL for growth restriction/oligo IOL: Reviewed R/B/A/ Consents obtained Confirmed vertex by US -Misoprostol 50 mg BC Q4H for up to 6 doses -Reviewed possibility and application of Leblanc Balloon -Pitocin when favorable FWB: Vertex, GBS neg, Cat I tracing, growth restriction -CEFM PAIN:Does not want to be offered pain medication, will request as needed plan reviewed Clinic notes show plan for encapsulation of placenta -Address with patient and sign tissue release form Observation until active, ruptured, or pitocin is started Anticipate
[2020-02-14] MEDS: miSOPROStoL 100 MCG TABLET BC SCH ×6 (01:33→20:20)
--- NOTE | 2020-02-14 02:14 | PROVIDER PROGRESS NOTE ---
Labor Progress Note - Uterine Monitoring Contraction Frequency (min/apart): 3-5 Contraction Intensity: positive: Mild - Monitoring Monitor Mode: positive: External ultrasound Heart Rate Baseline: 125 Heart Rate Variability: positive: Moderate (6-25 bmp) Accelerations: positive: Present, 15x15 Decelerations: positive: None Strip Review: positive: Category I - Labor Progress Note Labor Progress Note/Additional Text: Patient has had miso x2 doses Currently sleeping Cat I tracing Cont with cervical ripening Anticipate
[2020-02-14] MEDS: SODIUM CHLORIDE FLUSH 0.9% 10 ML SYRINGE IVP SCH ×3 (10:12→20:25)
--- NOTE | 2020-02-14 11:36 | PROVIDER PROGRESS NOTE ---
Subjective - Prog Note Date Prog Note Date: 02/14/20 Prog Note Time: 10:34 - Subjective Subjective: Patient has had 4 doses of miso overnight Beginning to feel contractions Would like to be checked prior to next dose No complaints +FM Objective - Vital Signs/Intake & Output Vital Signs: 119/67 59 18 - Objective General Appearance: positive: No acute distress Respiratory: positive: No respiratory distress Cardiovascular: positive: Other (RR) Abdomen: positive: Non-tender, Other (gravid, soft, and non-tender) Back: positive: Nml inspection Skin: positive: Color nml Extremities: positive: Non-tender, Nml appearance Neurologic/Psychiatric: positive: Oriented x3 - Lab Results Fish Bones: 02/13/20 21:00 Other Labs: Lab Results x24hrs 02/13/20 Range/Units 21:00 WBC 14.6 H (4.8-10.8) x10^3/uL RBC 4.07 L (4.20-5.40) 10^6/uL Hgb 12.2 (12.0-16.0) g/dL Hct 35.6 L (37.0-47.0) % MCV 87.5 (81.0-99.0) fL MCH 30.0 (27.0-31.0) pg MCHC 34.3 (32.0-36.0) g/dL RDW 12.6 (12.0-15.0) % Plt Count 306 (130-450) 10^3/uL MPV 9.5 (7.9-10.8) fL Neut # (Auto) 10.8 H (1.5-6.6) 10^3/uL Lymph # (Auto) 2.7 (1.5-3.5) 10^3/uL [place] # (Auto) 0.8 (0.0-1.0) 10^3/uL Eos # (Auto) 0.1 (0.0-0.7) 10^3/uL Baso # (Auto) 0.0 (0.0-0.1) 10^3/uL Absolute Nucleated RBC 0.00 x10^3/uL Nucleated RBC % 0.0 /100WBC Assessment/Plan - Problem List (1) Encounter for induction of labor Impression: IOL: s/p miso x4 -Requesting SVE prior to next exam -Miso vs Leblanc balloon vs pitocin to be determined based on upcoming exam Cat I tracing Anticipate
--- NOTE | 2020-02-14 13:22 | PROVIDER PROGRESS NOTE ---
Subjective - Prog Note Date Prog Note Date: 02/14/20 Prog Note Time: 11:00 - Subjective Subjective: Patient is comfortable with epidural. Having some shaking Objective - Vital Signs/Intake & Output Reviewed Vital Signs: Yes Vital Signs: 71 16 124/99 - Objective General Appearance: positive: Mild distress Respiratory: positive: No respiratory distress Cardiovascular: positive: Other (RR) Extremities: positive: Other (heavy 2/2 epidural) Neurologic/Psychiatric: positive: Oriented x3 Comments/Other: SVE 9/C/+1 - Lab Results Fish Bones: 02/13/20 21:00 Other Labs: Lab Results x24hrs 02/13/20 Range/Units 21:00 WBC 14.6 H (4.8-10.8) x10^3/uL RBC 4.07 L (4.20-5.40) 10^6/uL Hgb 12.2 (12.0-16.0) g/dL Hct 35.6 L (37.0-47.0) % MCV 87.5 (81.0-99.0) fL MCH 30.0 (27.0-31.0) pg MCHC 34.3 (32.0-36.0) g/dL RDW 12.6 (12.0-15.0) % Plt Count 306 (130-450) 10^3/uL MPV 9.5 (7.9-10.8) fL Neut # (Auto) 10.8 H (1.5-6.6) 10^3/uL Lymph # (Auto) 2.7 (1.5-3.5) 10^3/uL [place] # (Auto) 0.8 (0.0-1.0) 10^3/uL Eos # (Auto) 0.1 (0.0-0.7) 10^3/uL Baso # (Auto) 0.0 (0.0-0.1) 10^3/uL Absolute Nucleated RBC 0.00 x10^3/uL Nucleated RBC % 0.0 /100WBC Assessment/Plan - Problem List (1) Encounter for induction of labor Impression: Pitocin at 3 s/p AROM 9/C/+1 station Clear fluid Cat I tracing Will recheck and likely start pushing in one hour Anticipate
[2020-02-14] MEDS: LACTATED RINGERS 1,000 ML IV SCH ×2 (19:03→19:04)
[2020-02-14] MEDS: OXYTOCIN/SODIUM CHLORIDE 500 ML IV SCH (19:04)
[2020-02-14] MEDS ORDERED: SIMETHICONE CHEW 80 MG TABLET PO PRN (19:50)
--- NOTE | 2020-02-14 20:29 | PROVIDER PROGRESS NOTE ---
Labor Progress Note - Uterine Monitoring Uterine Monitoring Mode: positive: External toco Contraction Frequency (min/apart): Q5-6 Contraction Intensity: positive: Mild to moderate - Monitoring Monitor Mode: positive: External ultrasound Heart Rate Baseline: 130 Heart Rate Variability: positive: Moderate (6-25 bmp) Accelerations: positive: Present, 15x15 Decelerations: positive: None Strip Review: positive: Category I - Vaginal Exam Dilation (in cm): 1 Effacement (%): 30 Station: -2 Cervical Position: Midposition - Labor Progress Note Labor Progress Note/Additional Text: Patient has had miso x5 SVE unchanged at /high Leblanc balloon placed with 60/60 in each balloon Cat I tracing OK to have final dose of miso followed with low dose pitocin when eligible per algorithms Anticipate
[2020-02-14] MEDS: diphenhydrAMINE 25 MG CAPSULE PO PRN (22:16)
[2020-02-15] MEDS: miSOPROStoL 100 MCG TABLET BC SCH ×5 (00:13→17:29)
[2020-02-15] MEDS ORDERED: miSOPROStoL 200 MCG TABLET ONE (08:22)
[2020-02-15] MEDS: OXYTOCIN/SODIUM CHLORIDE 500 ML IV SCH (09:30)
[2020-02-15] MEDS: LACTATED RINGERS 1,000 ML IV SCH ×3 (09:30→17:28)
--- NOTE | 2020-02-15 11:21 | PROVIDER PROGRESS NOTE ---
Labor Progress Note - Uterine Monitoring Contraction Frequency (min/apart): Q3-5 Contraction Intensity: positive: Mild - Monitoring Monitor Mode: positive: External ultrasound Heart Rate Baseline: 135 Heart Rate Variability: positive: Moderate (6-25 bmp) Accelerations: positive: Present, 15x15 Decelerations: positive: None Strip Review: positive: Category I - Vaginal Exam Dilation (in cm): 1 Effacement (%): 60 Station: -3 Cervical Position: Posterior - Labor Progress Note Labor Progress Note/Additional Text: Patient has had miso x6 and failed bray bulb placement. Late start to starting low dose pitocin this am. Currently at 2 mU/min (just increased to 3 mU/min per music composition teacher). Was checked at 9 am by RN and SVE remains unchanged Will continue with low dose pitocin and consider repeat attempt at Bray bulb placement when more favorable, at least when cervical consistency improves. Will plan on slow, patient approach to cervical ripening as tracing has remained Cat I Patient in agreement with plan -Cont low dose pitocin -Reassess for Bray bulb placement when more favorable -Cat I tracing
[2020-02-15 14:33] LABS: RUPTURE OF MEMBRANES PLUS POSITIVE (NEGATIVE)
[2020-02-15] MEDS: SODIUM CHLORIDE FLUSH 0.9% 10 ML SYRINGE IVP SCH ×2 (15:16→15:34)
[2020-02-15] MEDS ORDERED: ROPIVACAINE 0.2% 200 MG/100 ML BAG EP ONE (16:39)
[2020-02-15] MEDS ORDERED: LACTATED RINGERS 500 ML IV ONE (17:21)
[2020-02-15] MEDS ORDERED: NALBUPHINE 10 MG/ML AMP IVP PRN (17:21)
[2020-02-15] MEDS ORDERED: diphenhydrAMINE INJ 50 MG/ML VIAL IVP PRN (17:21)
[2020-02-15] MEDS ORDERED: ONDANSETRON 4 MG/2 ML VIAL IVP PRN (17:21)
[2020-02-15] MEDS ORDERED: METOCLOPRAMIDE 10 MG/2 ML VIAL IVP PRN (17:21)
[2020-02-15] MEDS ORDERED: NALOXONE 0.4 MG/ML VIAL IVP PRN (17:21)
[2020-02-15] MEDS ORDERED: ePHEDrine 50 MG/ML VIAL IVP PRN (17:21)
[2020-02-15] MEDS ORDERED: ROPIVACAINE 0.2% 200 MG/100 ML BAG EP PRN (17:21)
--- NOTE | 2020-02-15 17:21 | ANESTHESIA ---
Pre-Anesthesia VS, & Labs - Diagnosis gravid uterus, labor induction - Procedure labor epidural Vital Signs: Temp Pulse Resp BP Pulse Ox 36.7 C 77 18 110/67 02/13/20 19:50 02/13/20 18:09 02/13/20 18:09 02/13/20 18:09 Height 5 ft 4 in Weight (kg) 76.204 kg - NPO Other - Is Patient ?: Yes - Lab Results Current Lab Results: Laboratory Tests 02/13/20 21:00: WBC 14.6 H, RBC 4.07 L, Hgb 12.2, Hct 35.6 L, MCV 87.5, MCH 30.0, MCHC 34.3, RDW 12.6, Plt Count 306, MPV 9.5, Neut # (Auto) 10.8 H, Lymph # (Auto) 2.7, [place] # (Auto) 0.8, Eos # (Auto) 0.1, Baso # (Auto) 0.0, Absolute Nucleated RBC 0.00, Nucleated RBC % 0.0 Lab results reviewed: Yes Fish Bones: 02/13/20 21:00 Home Medications and Allergies Active Medications Acetaminophen (Tylenol) 650 mg PO Q6H PRN PRN Reason: Pain or Fever Carboprost Tromethamine (Hemabate) 250 mcg IM Q15M PRN PRN Reason: Step 4: Hemorrhage protocol Stop: 02/15/20 20:52 Diphenhydramine HCl (Benadryl) 25 mg PO QPM PRN PRN Reason: Insomnia Last Admin: 02/14/20 22:16 Dose: 25 mg Documented by: Fentanyl (Fentanyl) 50 mcg IVP Q1H PRN PRN Reason: PAIN Oxytocin/Sodium Chloride (Pitocin/Sodium Chloride) 500 mls @ 999 mls/hr IV PRN PRN; Protocol PRN Reason: POST- HEMORR PREVENTION Stop: 02/15/20 20:52 Tranexamic Acid 1,000 mg/ (Sodium Chloride) 110 mls @ 660 mls/hr IV ONCE PRN PRN Reason: EBL >1200mL and within 3hr Stop: 02/15/20 20:52 Oxytocin/Sodium Chloride (Pitocin/Sodium Chloride) 500 mls @ 1 mls/hr IV TITR KEV; Protocol Last Admin: 02/15/20 09:30 Dose: 1 milliunit/min, 1 mls/hr Documented by: Oxytocin/Sodium Chloride (Pitocin/Sodium Chloride) 500 mls @ 999 mls/hr IV PRN PRN; Protocol PRN Reason: POST- HEMORR PREVENTION Lactated Ringer's (Lr) 1,000 mls @ 100 mls/hr IV .Q10H [facility] Last Admin: 02/15/20 15:16 Dose: Not Given Documented by: Methylergonovine Maleate (Methergine Inj) 0.2 mg IM ONCE PRN PRN Reason: Step 2: Hemorrhage protocol Stop: 02/15/20 20:52 Methylergonovine Maleate (Methergine Inj) 0.2 mg IM Q4HR PRN PRN Reason: Post- Hemorrhage Misoprostol (Cytotec) 800 mcg BC ONCE PRN PRN Reason: Step 3: Hemorrhage protocol Stop: 02/15/20 20:52 Misoprostol (Cytotec) 50 mcg BC Q4HR [facility] Last Admin: 02/15/20 15:34 Dose: Not Given Documented by: Ondansetron HCl (Zofran Inj) 4 mg IVP Q4HR PRN PRN Reason: Nausea / Vomiting Ondansetron HCl (Zofran Odt) 4 mg TL Q4HR PRN PRN Reason: Nausea / Vomiting Oxytocin (Pitocin) 10 unit IM ONCE PRN PRN Reason: Step one: If no IV access Stop: 02/15/20 20:52 Simethicone (Mylicon) 80 mg PO Q6H PRN PRN Reason: Gas Last Admin: 02/14/20 20:20 Dose: 80 mg Documented by: Sodium Chloride (Normal Saline Flush 0.9%) 10 ml IVP 0100,0900,1700 [facility] Last Admin: 02/15/20 15:34 Dose: Not Given Documented by: Sodium Chloride (Normal Saline Flush 0.9%) 10 ml IVP PRN PRN PRN Reason: NEEDED PER PROVIDER ORDERS Terbutaline Sulfate (Terbutaline) 0.25 mg SUBQ Q1H PRN PRN Reason: distress- call MD Allergies/Adverse Reactions: Allergies Allergy/AdvReac Type Severity Reaction Status Date / Time No Known Drug Allergies Allergy Verified 02/10/20 11:11 Anes History & Medical History - Anesthetic History Anesthesia Complications: reports: No previous complications Family history of Anesthesia Complications: Denies Family history of Malignant Hyperthermia: Denies - Medical History Cardiovascular: reports: None Pulmonary: reports: None Neuro: reports: None Musculoskeletal: reports: None Endocrine/Autoimmune: reports: None Smoking Status: Never smoker - Obstetrical History : 1 Parity: 0 Complications: positive: Other (growth restriction now with oligo) Exam General: Alert, Oriented x3, Cooperative Dental: WNL Mouth Opening: Greater than 4 Fingerbreadths Neck Mobility: Normal Mallampati classification: II Thyromental Distance: 4-6 cm Respiratory: Lungs clear Cardiovascular: Regular rate Plan Anesthesia Type: Epidural Consent for Procedure(s) Verified and Reviewed: Yes Code Status: Attempt Resuscitation ASA classification: 2-Mild systemic disease Is this case an emergency?: No
--- NOTE | 2020-02-15 21:21 | PROVIDER PROGRESS NOTE ---
Labor Progress Note - Uterine Monitoring Contraction Frequency (min/apart): Q5-10 min Contraction Intensity: positive: Moderate - Monitoring Heart Rate Baseline: 145 Heart Rate Variability: positive: Moderate (6-25 bmp) Accelerations: positive: Present, 15x15 Decelerations: positive: None - Vaginal Exam Dilation (in cm): 8 Effacement (%): C Station: 0 Cervical Position: Midposition - Labor Progress Note Labor Progress Note/Additional Text: Patient had been showing decels with contractions and pitocin was stopped at 19:25. She was 5-6 cm at prior exam at 19:18 She was checked again at 19:46 and was 8/C/0 with a stretchy, soft cervix. EFM had recovered with baseline 145 and moderate variability with decels Pitocin was restarted at 20:00 Now Cat I tracing. SROM at approximately 13:00 with positive ROM+ Pitocin currently at 3 mU/min Cat I tracing Irreg contraction pattern Anticipate
[2020-02-15] MEDS: ACETAMINOPHEN 325 MG TABLET PO PRN (21:32)
[2020-02-15] MEDS: PIPERACILLIN/TAZOBACTAM 3.375 GM in SODIUM CHLORIDE 0.9% MINIBAG 100 ML IV SCH (22:00)
--- NOTE | 2020-02-15 22:17 | PROVIDER PROGRESS NOTE ---
Subjective - Prog Note Date Prog Note Date: 02/15/20 Prog Note Time: 22:15 - Subjective Subjective: Repeat maternal temp 100.3 after acetaminophen but baseline now 160s Starting zosyn 3.75 g IV Q6H for presumed chorio Able to push back anterior lip with contractions with residual posterior lip. EFM 165 mod bruno + accels with one decel at 22:14 TOCO: Q3-4 by palpation Peds for delivery Objective - Vital Signs/Intake & Output Intake & Output: Intake & Output 02/12/20 02/13/20 02/14/20 02/15/20 23:59 23:59 23:59 23:59 Intake Total 796.667 Balance 796.667 - Lab Results Fish Bones: 02/13/20 21:00 Other Labs: Lab Results x24hrs 02/15/20 Range/Units 13:24 Membranes Rupture POSITIVE A (NEGATIVE)
[2020-02-15] MEDS ORDERED: miSOPROStoL 200 MCG TABLET BC ONE (23:43)
--- NOTE | 2020-02-16 00:10 | DELIVERY NOTE ---
Delivery Note - Labor Labor: positive: Induced by oxytocin - Infant Delivery Method Delivery Method: positive: Spontaneous vaginal delivery - Cervical Ripening Method Cervical Ripening Method: positive: Balloon device, Misoprostil - Presentation Presentation: positive: Vertex - Nuchal Cord Nuchal Cord: positive: None - Anesthetic Anesthetic Type: - Amniotic Fluid Description Amniotic Fluid Description: positive: Clear - Episiotomy Type Episiotomy Type: positive: None - Laceration Laceration: positive: None - [place]: positive: Placed in direct skin contact with mother, Bulb syringe, Stimulated, Warmed, [place] used [place] sex: positive: Female - Cord Cord: positive: 3 vessels - Placenta Placenta: positive: Intact, Expressed - Estimated Blood Loss Estimated Blood Loss (in cc): 150 - Post Delivery Events Post Delivery Events: positive: No post delivery events - Delivery Comments (Free Text/Narrative) Delivery Comments (Free Text/Narrative): STAGE I: Patient is a 34 yo admitted at 38+1 wga with a complicated by growth restriction and oligohydramnios Patient has been followed for growth restriction. She was seen by MFM in consultation on 02/12/20 at which time she was found to have low amniotic fluid levels. The recommendation was to proceed with induction of labor. Initial SVE was closed, long, and high. Confirmed vertex by bedside us. She received 6 doses of misoprostol 50 mcg BC. Leblanc bulb was palced but fell out within 30 minutes, suggesting inadequate positioning. She was then started on low dose pitocin for cervical ripening. On 02/15/2020, she underwent spontaneous rupture of membranes at about 13:00, confirmed with ROM+. Epidural for pain management. GBS negative; antibiotic prophylaxis was not indicated. Max dose of pitocin was 8 mu/min. At 19:18, patient was 5 cm dilated. tracing showed recurrent deep decels and pitocin had been discontinued at 19:22. At 19:43, she was 8 cm dilated. Patient was rested for 30 minutes and then pitocin was re- started at 2 mU/min at 20:00. At about 21:26, patient developed an axial temperature of 38.2 C. Thirty minutes later, temperature was 37.9 after patient had received acetaminophen. heart rate was in the 160-170s. Piperacillin-tazobactam 3.375 g IV was given for presumed chorioamnionitis. Pa tient was completely dilated at 22:39. STAGE II: Patient pushed well for 46 minutes to deliver a viable female infant from vertex presentation. Infant delivered easily from DIVYA presentation with r ight shoulder anterior. No nuchal cord. was delivered to maternal chest and cord was allowed to pulse for 60 seconds before it was clamped x2 and cut. She was handed off the awaiting flume worker for further evaluation. Apgars were 7 at 1 minute and 9 at 5 minutes. Weight is pending. STAGE III: Placenta was delivered with manual expression and gentle downward traction on the umbilical cord. It was examined and found to be intact. Perineum was examined and found to be intact. Patient was given misoprostol 600 mcg as an additional prophylactic measure given the prolonged induction complicated by chorioamnionitis. Total EBL was 150 cc.
[2020-02-16] MEDS ORDERED: HYDROCORTISONE 1% CREAM 28 GM TUBE PR PRN (00:38)
[2020-02-16] MEDS ORDERED: ACETAMINOPHEN 500 MG TABLET PO SCH (01:00)
[2020-02-16] MEDS ORDERED: LACTATED RINGERS 1,000 ML IV SCH (01:00)
[2020-02-16] MEDS: IBUPROFEN 600 MG TABLET PO SCH ×4 (02:14→21:15)
[2020-02-16] MEDS: PIPERACILLIN/TAZOBACTAM 3.375 GM in SODIUM CHLORIDE 0.9% MINIBAG 100 ML IV SCH (03:50)
[2020-02-16] MEDS: DOCUSATE SODIUM 100 MG CAPSULE PO PRN ×2 (08:37→21:15)
--- NOTE | 2020-02-16 13:20 | PROVIDER PROGRESS NOTE ---
Subjective - Prog Note Date Prog Note Date: 02/16/20 Prog Note Time: 13:16 - Subjective Subjective: Doing well. BF going well. Patient is up and ambulating. Tolerating po. Voiding no concerns. Objective - Vital Signs/Intake & Output Vital Signs: Vital Signs x48h Temp Pulse Resp BP Pulse Ox 02/16/20 11:51 98.1 F 64 18 106/53 L 100 02/16/20 08:58 98.2 F 63 18 105/62 100 Intake & Output: Intake & Output 02/13/20 02/14/20 02/15/20 02/16/20 23:59 23:59 23:59 23:59 Intake Total 896.667 900 Output Total 500 1600 Balance 396.667 -700 - Objective General Appearance: positive: No acute distress Neck: positive: Nml inspection Respiratory: positive: No respiratory distress Cardiovascular: positive: Regular rate & rhythm Abdomen: positive: Non-tender, Other (S&NT. FF below umbi) Skin: positive: Color nml Neurologic/Psychiatric: positive: Oriented x3 - Lab Results Fish Bones: 02/13/20 21:00 Other Labs: Lab Results x24hrs 02/15/20 Range/Units 13:24 Membranes Rupture POSITIVE A (NEGATIVE) Assessment/Plan - Problem List (1) Encounter for induction of labor Impression: S/P Vaginal delivery - Doing well -SGA , will remain inpatient until Wed am -Routine pp care
[2020-02-17] MEDS: ACETAMINOPHEN 325 MG TABLET PO PRN ×2 (03:11→11:22)
[2020-02-17] MEDS: IBUPROFEN 600 MG TABLET PO SCH ×2 (07:18→22:20)
[2020-02-17] MEDS: DOCUSATE SODIUM 100 MG CAPSULE PO PRN ×2 (11:23→20:27)
[2020-02-17] MEDS: diphenhydrAMINE 25 MG CAPSULE PO PRN (22:49)
--- NOTE | 2020-02-17 22:49 | PROVIDER PROGRESS NOTE ---
Subjective - Prog Note Date Prog Note Date: 02/17/20 Prog Note Time: 13:43 - Subjective Subjective: No concerns. BF going well. Up and ambulating, tolerating po, pain minimal. Voiding. Minimal lochia Objective - Vital Signs/Intake & Output Reviewed Vital Signs: Yes Vital Signs: Vital Signs x48h Temp Pulse Resp BP Pulse Ox 02/17/20 20:36 98.9 F 66 16 111/59 L 98 02/17/20 16:00 97.9 F 66 16 120/80 100 Intake & Output: Intake & Output 02/14/20 02/15/20 02/16/20 02/17/20 23:59 23:59 23:59 23:59 Intake Total 896.667 900 Output Total 600 1600 Balance 296.667 -700 - Objective General Appearance: positive: No acute distress Neck: positive: Nml inspection Respiratory: positive: No respiratory distress, Breath sounds nml Cardiovascular: positive: Regular rate & rhythm Abdomen: positive: Non-tender, Other (FF below umbi) Skin: positive: Color nml Extremities: positive: Non-tender, No pedal edema Neurologic/Psychiatric: positive: Oriented x3 - Lab Results Fish Bones: 02/13/20 21:00 Assessment/Plan - Problem List (1) Encounter for induction of labor Impression: PPD#2 s/p Routine care Cont observation of baby Anticipate DC home in am
--- NOTE | 2020-02-18 11:12 | Discharge Plan ---
Discharge Plan Problem Reviewed?: Yes Disposition: Home, Self Care Condition: Good Diet: Regular Activity Restrictions: Additional Comments (Nothing in the vagina for 6 weeks: No intercourse, tampons, douching Call for: -Fever greater than 100.5 - Pain that does not improve with pain medication -Heavy bleeding in which you are soaking a pad an hour for 2 hours in a row) Driving Restrictions: No Weight Bearing: Full Weight Additional Instructions or Follow Up instructions: Ibuprofen 600 mg by mouth every 6 hours as needed for pain Acetaminophen 500-1000 mg by mouth every 8 hours as needed for pain Docusate 100-200 mg by mouth twice a day as needed for constipation No Smoking: If you smoke, Please STOP! Call for help. Follow-up with: Liz Parisi MD [Provider Admit Priv/Credential] -
[2020-02-18] MEDS: DOCUSATE SODIUM 100 MG CAPSULE PO PRN (11:56)
[2020-02-18 13:34] VITALS: BP 113/70
--- NOTE | 2020-02-18 13:36 | Labor Flowsheet ---
Labor Flowsheet Datetime Report Generated by CPN: 02/18/2020 13:36 Datetime: 02/18/2020 12:46 VITAL SIGNS NBP Sys/Stacy/Mean (mmHg): 113 : 70 : 79 Pulse: 64 LaborFlag: Labor Datetime: 02/17/2020 07:25 SpO2 (%): 100 Datetime: 02/15/2020 23:26 UTERINE ACTIVITY Monitor Mode: External Frequency (min): 3-5 Quality: Strong Duration (sec): 60+ Pattern: Normal: <= 5 Contractions in 10 Minutes Resting Tone (Palpate): Relaxed ASSESSMENT A Monitor Mode: External US FHR Baseline Changes: No Baseline Change Variability: Moderate 6-25 bpm Accelerations: 10X10 Decelerations: Late Category: Category II Communication Comments: vs from [id number] were being done on different machine and were accidently erased all wnl nursing staff and OB MD present during this time. Datetime: 02/15/2020 23:13 Comments: cont. lates with pushing, MD still monitoring, baby's head coming down nicely with every push Datetime: 02/15/2020 22:56 Pitocin Checklist: At Least 1 Acceleration of 15 bpm x 15 Seconds in 30 Minutes or Adequate Variabi lity; No More than 1 Late Deceleration Occurred in Past 30 Minutes; No More than 2 Variable Decelerat ions > 60 Seconds in Duration and decreasing >60 bpm in 30 minutes; No More than 5 Uterine Contractio ns in 10 Minutes for any 20 Minute Interval MEDICATIONS Pitocin (milliunits): Increased to @ 6 Medication Comments: Per MD request to increase pitocin at this time Datetime: 02/15/2020 22:41 Patient Care Comments: pushing STAGE 2 Pushing Position: Pushing with Contractions Datetime: 02/15/2020 22:39 VAGINAL EXAM Dilatation (cm): 10.0 Effacement (%): 100 Station: 2 Exam by: Dr. Parisi Vaginal Exam Comments: anterior lip but reducable Datetime: 02/15/2020 22:15 FHR Baseline Rate : 160 Datetime: 02/15/2020 22:13 Patient Position/Activity: Left Tilt Datetime: 02/15/2020 22:01 Temperature (C): 37.9 Datetime: 02/15/2020 21:52 Monitor Interventions for UA: Graball Adjusted Datetime: 02/15/2020 21:26 Anesthesia Comments: t8 on right t10 on left Datetime: 02/15/2020 20:15 Oxygen Method: Room Air Datetime: 02/15/2020 20:00 Respirations: 17 Datetime: 02/15/2020 19:45 Hygiene: Bren Care Datetime: 02/15/2020 19:43 Actions for Decelerations: Side to Side; Pitocin Off; Sterile Vaginal Exam; Blood Pressure; P rovider Notified Datetime: 02/15/2020 19:38 Anesthesia Level Check: T10- Umbilicus Datetime: 02/15/2020 19:23 COMMUNICATION Communication: Call/Page Placed to Provider Datetime: 02/15/2020 18:30 Pain Presence: None/Denies Datetime: 02/15/2020 18:29 I/O Interventions: Leblanc Cath Inserted Datetime: 02/15/2020 17:30 PAIN Pain Scale: 3 Pain Type: Dull Pain Location: Abdomen MATERNAL ASSESSMENT Level of Consciousness: Alert DTR's/Clonus: DTRs 2+ Headache: Denies Breath Sounds, Left: Clear and Equal Breath Sounds, Right: Clear and Equal Nausea/Vomiting: Denies RUQ Epigastric Pain: Denies Datetime: 02/15/2020 17:13 Epidural Procedure: Completed Epidural Procedure Other: Pump Started Datetime: 02/15/2020 16:58 Monitor Interventions for FHR: Ultrasound Adjusted Datetime: 02/15/2020 16:45 PROCEDURE TIME OUT Procedure Verify: Correct Patient Identity; Correct Side and Site are Marked; Accurate Procedure Co nsent Form; Agreement on Procedure to be Done; Correct Patient Position ANESTHESIA Anesthesia Plans: Epidural Epidural Positioning: Sitting Datetime: 02/15/2020 16:40 Provider Notified (Name): C Kleiv, ACQUISITION ADVISOR Datetime: 02/15/2020 16:38 PATIENT CARE IV/Blood Work: IV Bolus Given ml @ (Annotations: 500) Datetime: 02/15/2020 15:55 Vaginal Bleeding: None Cervix, Consistency: Moderate Cervix, Position: Posterior Datetime: 02/15/2020 15:44 Pain Assessment Comments: Out of jacuzzi Datetime: 02/15/2020 15:07 Pain Coping: Breathing Through Contractions Comfort Measures: Breathing/Relaxation; Hot Shower/Tub/Spa; Family Support; Aromatherapy Datetime: 02/15/2020 14:24 Pain Goal: 8 Datetime: 02/15/2020 13:24 Membrane Comments: ROM test collected, POSITIVE Datetime: 02/15/2020 13:06 Membrane Status: Ruptured Membranes Rupture Method: Spontaneous Amniotic Fluid Color: Clear Amniotic Fluid Amount: Scant Nitrazine: Positive Datetime: 02/15/2020 10:00 Contraction Comments: Inverted contraction at 0952 Datetime: 02/15/2020 00:13 Cervical Ripening Agents: Cytotec @ 50 Datetime: 02/14/2020 20:40 TEACHING Instructional Method: Verbal; Patient Instructed; Family/Support Person Instructed Plan of Care: Plan of Care Discussed; Vaginal Delivery; Labor; Induction Labor/Induction: Labor Stages; Cervical Ripening; Augmentation; Pushing Methods Pain Management: Comfort Measures PTL/PROM: Hydration Related: Common Discomforts of ; Activity and Rest Datetime: 02/14/2020 13:56 Stage of : Labor Provider Reviewed Strip: Yes
--- NOTE | 2020-02-26 05:36 | DISCHARGE SUMMARY ---
"Discharge Summary Admit Date: 02/13/20 Discharge Date: 02/18/20 Discharging Provider: Isak Code Status: Attempt Resuscitation Discharge Facility [facility]: [facility] - DIAGNOSES Admission Diagnoses: IUP at 38+1 wga growth restriction Oligohydamnios Discharge Diagnoses with Status of Each Condition: Same and delivery of term, [id number] age - HPI History of Present Illness: Patient is a 34 yo at 38+1 wga with a complicated by growth restriction now with oligohydramnios Patient has been followed for growth restriction. She was seen by MFM in consultation on 02/12/20 at which time she was found to have low amntioic fluid levels. The recommendation was to proceed with induction of labor. She endorses FM. Denies LOF/VB/CTX. OB HX as below: Initial U/S: @ 9.6wks c/w LMP dating. B pos/Rubella -immune Gentic testing: Bigelow screen neg, sex female; Quad screen neg FAS: 10/08/2019 WNL however incomplete. Posterior placenta, no previa. 3VC. Size c/w dating. DEACON WNL. 10/22/2019 f/u FAS WNL. 01/23/2020 growth US shows IUGR 5th percentile MFM- Growth US 7%. Deliver between 38.0-39.0wks. Glucola: 88 TDAP: given GBS & GC/CT at 36 weeks HSV: denies - CONSULTS | PROCEDURES Consultations: Anesthesia Procedures: Spontaneous vaginal delivery - HOSPITAL COURSE Hospital Course: Patient is a 34 yo admitted at 38+1 wga with a complicated by growth restriction and oligohydramnios Patient has been followed for growth restriction. She was seen by MFM in consultation on 02/12/20 at which time she was found to have low amniotic fluid levels. The recommendation was to proceed with induction of labor. Initial SVE was closed, long, and high. Confirmed vertex by bedside us. She received 6 doses of misoprostol 50 mcg BC. Leblanc bulb was palced but fell out within 30 minutes, suggesting inadequate positioning. She was then started on low dose pitocin for cervical ripening. On 02/15/2020, she underwent spontaneous rupture of membranes at about 13:00, confirmed with ROM+. Epidural for pain management. GBS negative; antibiotic prophylaxis was not indicated. Max dose of pitocin was 8 mu/min. At 19:18, patient was 5 cm dilated. tracing showed recurrent deep decels and pitocin had been discontinued at 19:22. At 19:43, she was 8 cm dilated. Patient was rested for 30 minutes and then pitocin was re-started at 2 mU/min at 20:00. At about 21:26, patient developed an axial temperature of 38.2 C. Thirty minutes later, temperature was 37.9 after patient had received acetaminophen. heart rate was in the 160-170s. Piperacillin-tazobactam 3.375 g IV was given for presumed chorioamnionitis. Patient was completely dilated at 22:39. Patient pushed well for 46 minutes to deliver a viable female from vertex presentation. delivered easily from DIVYA presentation with right shoulder anterior. No nuchal cord. was delivered to maternal chest and cord was allowed to pulse for 60 seconds before it was clamped x2 and cut. She was handed off the awaiting imaging engineer for further evaluation. Apgars were 7 at 1 minute and 9 at 5 minutes. Weight was 2194g Placenta was delivered with manual expression and gentle downward traction on the umbilical cord. It was examined and found to be intact. Perineum was examined and found to be intact. Patient was given misoprostol 600 mcg as an additional prophylactic measure given the prolonged induction complicated by chorioamnionitis. Total EBL was 150 cc. course was uncomplicated. Additional observation of SGA infant for 2 days . DIscharged to home on day #3. - ALLERGIES Allergies/Adverse Reactions: Allergies Allergy/AdvReac Type Severity Reaction Status Date / Time No Known Drug Allergies Allergy Verified 02/10/20 11:11 - PHYSICAL EXAM AT DISCHARGE General Appearance: positive: No acute distress Neck: positive: Nml inspection Respiratory: positive: No respiratory distress, Breath sounds nml Cardiovascular: positive: Regular rate & rhythm Peripheral Pulses: positive: 2+ Abdomen: positive: Non-tender, Other (fundus firm at umbilicus) Skin: positive: Color nml Extremities: positive: Non-tender, No pedal edema Neurologic/Psychiatric: positive: Oriented x3 - LABS Result Diagrams: 02/13/20 21:00 - FOLLOW UP Follow Up: 4 weeks - TIME SPENT Time Spent in Discharge (Minutes): 30"
== END 2020-02-18 12:50 | disposition home or self-care (01) | DRG 805 ==
LOC: WFO 17:53 → FBP 17:56 → WFO 20:50 → FBP 20:51 → OBSVTOIN 02-15 09:41
PROVIDERS: ADMIT Obstetrics & Gynecology; ATTEND Obstetrics & Gynecology
PROC: 10E0XZZ Delivery of Products of Conception, External Approach (ICD-10-PCS; principal; 2020-02-15)
DX: O41.03X0 Oligohydramnios, third trimester, not applicable or unspecified (principal); O41.1230 Chorioamnionitis, third trimester, not applicable or unspecified; Z37.0 Single live birth; O36.5930 Maternal care for other known or suspected poor fetal growth, third trimester, not applicable or unspecified; O63.0 Prolonged first stage (of labor); O76 Abnormality in fetal heart rate and rhythm complicating labor and delivery; Z3A.38 38 weeks gestation of pregnancy
CPT/HCPCS: 51703; 84112; 85025; 87070; 87077; 87181; 87205; A9270; G0378; J7120; 87252